=== PATIENT | male | born 1965 | race Caucasian/White ===

== ENCOUNTER 2018-06-12 12:48 | Day surgery (SDC) | payer BC, MEDICARE ==
--- NOTE | 2018-06-12 08:04 | History and Physical - [place] ---
CHIEF COMPLAINT/HISTORY OF CHIEF COMPLAINT: This patient with a history of intractable lumbar radiculopathy presents today for an implanted catheter infusion trial of Hydromorphone to determine if the implantation of a permanent spinal infusion deice could be of any value in pain control. PAST MEDICAL HISTORY: Asthmatic bronchitis, hypertension, thrombophlebitis, bladder dysfunction, fibromyalgia, did have degenerative arthritis . PAST SURGICAL HISTORY: Multiple kyphoplasty's, Cheryle Filter. MEDICATIONS ON ADMISSION: List to be provided. ALLERGIES: None. FAMILY/PSYCHOSOCIAL HISTORY: Social history: Caffeine. Family history - Thyroid disease, asthma, diabetes, coronary artery disease, hypertension, and cancer. SYSTEMS REVIEW: The patient seems appropriate in no acute distress. PHYSICAL EXAMINATION: Height is 5'4", weight is 170. No vital signs. HEENT: Within normal limits. LUNGS: Clear. HEART: Regular rate and rhythm. ABDOMEN: Nontender. MUSCULOSKELETAL: Examination of the musculoskeletal system shows diffuse tenderness throughout the thoracic and lumbar spine. Range of motion is somewhat painful throughout the mid back and low back pain. There is a lower extremity component across the front and back surface of both legs consistent with L4 an L5. There is motor weakness and sensory field abnormalities in the bilateral lower extremities. NEUROLOGIC: Cranial nerves are intact. IMPRESSION: INTRACTABLE THORACIC AND LUMBAR RADICULOPATHY, ICD-10 CODE M54.14 AND M54.16. PLAN: The patient is here for an implanted spinal catheter infusional trial of Hydromorphone to determine if the implantation of a permanent system can be of any value in pain control. The pain pattern appears to be mid back or thoracic all the way into the low back and lower extremities. His primarily pain is low back and legs. The spinal infusion trial with Hydromorphone will be done to determine if implantation of a permanent system can be of any value in his pain control. The procedure will be considered outpatient although an overnight stay will be evaluated. Implantation of a spinal catheter has inherent risks which have been discussed and reviewed including spinal cord injury, nerve root injury, spinal headache, and paralysis. An epidural blood patch will be performed as a prophylactic measure which may require him staying overnight. All of the potential risks, side effects, and complications have all been reviewed and discussed. JOB NUMBER: [id number] [facility]
[~2018-06-12 12:48] MED LIST: ACETAMINOPHEN 1,000 MG/100 ML BTL IV ONE; CEFAZOLIN 2 Gram 2 GM/50 ML BAG IVPB ONE; FAMOTIDINE 20MG TABLET PO ONE; HYDROMORPHONE PF 2MG/ML AMP 0.008 MG in 0.9 % SODIUM CHLORIDE 10ML VIA 0.996 ML IV ONE; HYDROMORPHONE PF 2MG/ML AMP 8 MG in 0.9 % SODIUM CHLORIDE 500ML 496 ML IV ONE; MECLIZINE 25 MG TABLET PO ONE; METOCLOPRAMIDE 10 MG TABLET PO ONE
[2018-06-12] MEDS ORDERED: FENTANYL PF 100MCG/2ML VIAL IV ONE (12:49)
[2018-06-12] MEDS ORDERED: PROPOFOL 10 MG/ML VIAL IV ONE (12:49)
[2018-06-12] MEDS ORDERED: HYDRALAZINE 20MG/ML VIAL IV ONE (12:49)
[2018-06-12] MEDS ORDERED: 0.9 % SODIUM CHLORIDE 10 ML VIAL IVP ONE (12:49)
[2018-06-12] MEDS ORDERED: LIDOCAINE 2% MDV (20MG/ML) 20ML VIAL IV ONE (12:49)
[2018-06-12] MEDS ORDERED: LIDOCAINE 1% W/EPI 1:200,000 MPF 30ML SQ ONE (12:49)
[2018-06-12] MEDS ORDERED: BUPIVACAINE 0.5% W/EPI MPF 30 ML VIAL IVP ONE (12:49)
[2018-06-12] MEDS ORDERED: MIDAZOLAM HCL 2MG/2ML VIAL IV ONE (12:49)
[2018-06-12] MEDS ORDERED: CEFAZOLIN 1G VIAL IM ONE (12:49)
[2018-06-14] MEDS ORDERED: HYDROMORPHONE PF 2MG/ML AMP 8 MG in 0.9 % SODIUM CHLORIDE 500ML 496 ML IV ONE (06:00)
[2018-06-14] MEDS ORDERED: HYDROMORPHONE PF 2MG/ML AMP 0.008 MG in 0.9 % SODIUM CHLORIDE 10ML VIA 0.996 ML IV ONE ×4 (06:00)
--- NOTE | 2018-06-15 09:30 | Operative Note ---
DATE OF SURGERY: 06/12/18 PREOPERATIVE DIAGNOSES: INTRACTABLE POST LUMBAR LAMINECTOMY SYNDROME, ICD-10 CODE = M96.1 WITH RADICULOPATHY, ICD-10 CODE = M54.16 AND M54.17. OPERATION: FLUOROSCOPICALLY-GUIDED ATTEMPTED SPINAL ACCESS AT L2-3 3-4, 4-5, AND 5-1 UNSUCCESSFUL. SURGEON: BRITTNI WILSON D.O. ANESTHESIA: LOCAL SEDATION. ANESTHESIA PROVIDER: SALOME CAAL CRNA. INDICATION: This patient presents today with for an implanted catheter trial infusion Hydromorphone for intractable pain, which is back, hip, and leg. His history includes eight compression fractures with eight surgeries for the compression fractures. His diagnostics show extensive degenerative changes and multiple contrast anomalies in the vertebral bodies at eight distinctly different levels thoracic and lumbar. He is here for a spinal opioid infusion trial to determine if the implantation of a permanent system can be of any value in pain control. PROCEDURE: Intravenous line, vital sign monitoring, IV sedation, prepped, draped, sterile technique. Patient position prone. Sterile prep and sterile technique. The spinal interspace at 3-4 was marked, infiltrated, and a 20-gauge spinal needle paramedian approach with AP and lateral imaging was performed, attempted, but unsuccessful. A similar technique was repeated at 3-4, 4-5, then 5-1 all unsuccessful. At that point, the procedure was aborted. There was never a spinal access. There was no CSF. There was no dural puncture. Nothing that even approximated the placement of the needle into the spinal space. The area was cleaned. Sterile dressing was applied. He was transported to the Recovery Room stable. We will evaluate this patient over the next 5-7 days. He will return for evaluation and discussion of options. DISCHARGE INSTRUCTIONS: Site will remain clean and dry. He may shower when ready. The dressing will simply fall off. He is to take his antibiotic for the next 10-14 days as initially prescribed. All other instructions provided. The events were carefully discussed with the patient and family. There were no side-effects, complications, or unusual events that took place only the unsuccessful placement of the needle. cc: Dr. Reba Easley JOB NUMBER: [id number] [facility]
== END 2018-06-12 16:25 | disposition home or self-care (01) ==
LOC: SUR 12:48
PROVIDERS: ATTEND Pain Medicine Interventional Pain Medicine
DX: M96.1 Postlaminectomy syndrome, not elsewhere classified (principal); M54.16 Radiculopathy, lumbar region; M54.17 Radiculopathy, lumbosacral region; I10 Essential (primary) hypertension; J44.9 Chronic obstructive pulmonary disease, unspecified; M06.9 Rheumatoid arthritis, unspecified
CPT/HCPCS: J0690; J1170; J7040